=== PATIENT | female | born 1970 | race Caucasian/White ===

== ENCOUNTER → 2016-07-06 | Outpatient (CLI) | payer OTHER ==
[~2016-07-06] MED LIST: ATENOLOL; ATENOLOL PO; BACLOFEN10 MG PO; FLEXERIL PO; FLEXERIL10 MG PO; IBUPROFEN800 MG PO; NORA-BE PO; OMEPRAZOLE20 M2 PO; SYNTHROID PO; TRAMADOL HCL50 M2 PO; VOLTAREN75 MG PO
--- NOTE | ~2016-07-06 | MR113 ---
[facility] A Service of [facility] & [facility] RADIOLOGY TEXT RESULTS PATIENT: ZANDRA SMITH LOCATION: [facility] : 68 UNIT #: [id number] AGE: [address]: Vamsi Rojo MD SEX: F ORDER DR: [id number] [address] [address] [id number] O MR#: [id number] Acc #: [id number] NAME: ZANDRA SMITH : 1970 SEX: F STUDY DATE/TIME: 07/06/2016 11:28 UNIT: [facility] ROOM: STUDY DESCRIPTION: MR Lumbar Wo Contrast Attending Physician: Vamsi Rojo M.D. Referring Physician: Vamsi Rojo M.D. Ordering Physician: Vamsi Rojo M.D. Primary Care Physician: Kyle Lambert M.D. MRI CENTER REPORT This report is preliminary unless electronic signature is present. EXAM MRI of the lumbar spine without contrast dated 07/06/2016. COMPARISON Plain films lumbar spine dated 03/31/2016. HISTORY Increased low back pain, which is greater on the left than the right. Bilateral lower extremity numbness and weakness for approximately 4 months. FINDINGS Multisequence multiplanar imaging of the lumbar spine was obtained without contrast. Vertebral body heights and alignment are preserved. Degenerative disc disease is seen from L3-4 to L5-S1. Conus terminates at L1. Signal of conus and cauda equina are within normal limits. Pre and paravertebral soft tissues do not demonstrate any significant abnormality. Increased T2-signal lesions are noted in bilateral kidneys with a relatively larger 1 in the inferior right kidney measuring 1.7 x 1.6 cm. These are incompletely characterized on the current study. At T10-11, concentric disc bulge with suspicious small central protrusion is noted based on the sagittal images with borderline size to mild canal stenosis without significant cord compression. Axials were not obtained at this level as this is a lumbar spine study. L1-2: Mild bilateral facet changes. No canal stenosis or neural foraminal narrowing. L2-3: Mild left facet hypertrophic change. No significant canal stenosis or neural foraminal narrowing. There is probably small left foraminal to extraforaminal broad-based protrusion, which barely encroaches on the left neural foramen. [facility] A Service of [facility] RADIOLOGY TEXT RESULTS PATIENT: ZANDRA SMITH LOCATION: [facility] : [birth year] UNIT #: [id number] AGE: [address]: Vamsi Rojo MD SEX: F ORDER DR: L3-4: Concentric disc bulge, which is asymmetrically prominent in the left foraminal to extraforaminal region, suggestive of broad-based protrusion. Mild inferior left neural foraminal narrowing is seen with minimal bilateral facet changes and borderline size to mild canal stenosis. L4-5: Concentric disc bulge with superimposed left foraminal to extraforaminal broad-based protrusion. Kjyk-ne-wuaknijc right and unqysdwf-wc-lyokgo left facet hypertrophic changes are noted with small 4.5 mm increased T2-signal lesion in the lateral aspect of the left facet joint, likely a small synovial cyst or inflammatory tissue. There is gupz-le-jbdkyofp canal stenosis and mild inferior bilateral neural foraminal narrowing , worse on the left. L5-S1: Concentric disc bulge with severe right and mild left facet hypertrophic change. Mild inferior right neural foraminal narrowing is seen. 5 mm increased T2-signal lesion is noted posterior to the left facet joint, likely small synovial cyst/inflammatory tissue. Dryr-tv-zpltfmtz inferior right neural foraminal narrowing is noted with widely patent superior portion of the neural foramen. IMPRESSION 1. Degenerative changes are noted at multiple levels involving the discs and the facet joints as described above. 2. Findings are slightly worse at L3-4 and L4-5. 3. At T10-11, concentric disc bulge with suspicious small central protrusion is noted based on the sagittal images with borderline size to mild canal stenosis without significant cord compression. Axials were not obtained at this level as this is a lumbar spine study. Dictated by... Mylene Ramirez M.D. THIS IS AN ELECTRONICALLY VERIFIED REPORT Mylene Ramirez M.D. at 07/09/2016 4:11 PM CPR/pc TD: 07/07/2016 12:24 JOB #: [id number] MRI CENTER REPORT Page 1 of 1
== END | disposition home or self-care (01) ==
LOC: SMRI 10:47
DX: M54.5 Low back pain (principal); M47.816 Spondylosis without myelopathy or radiculopathy, lumbar region; M51.86 Other intervertebral disc disorders, lumbar region
CPT/HCPCS: 72148

== ENCOUNTER 2016-09-10 11:24 | Emergency (ER) | payer OTHER ==
--- NOTE | ~2016-09-10 | CR281 ---
[facility] A Service of [facility] & [facility] RADIOLOGY TEXT RESULTS PATIENT: ZANDRA SMITH LOCATION: [facility] : [birth year] UNIT #: [id number] AGE: [address]: Coreen Solano APRN SEX: F ORDER DR: [id number] [facility] [address] [place], [place] [address] [id number] MR#: [id number] Acc #: [id number] NAME: ZANDRA SMITH. : 1970 SEX: F STUDY DATE/TIME: 09/10/2016 13:06 UNIT: [facility] ROOM: STUDY DESCRIPTION: CR Wrist Min 3 View Lt Attending Physician: Coreen Solano A.P.R.N. Ordering Physician: Librado Schmid M.D. Primary Care Physician: Kyle Lambert M.D. MEDICAL IMAGING REPORT This report is preliminary unless electronic signature is present EXAM Left wrist, 3 views, 09/10/2016, 1306 hours. CLINICAL HISTORY 45-year-old with chronic wrist pain for several years worsening today. No reported injury. COMPARISON None. FINDINGS AP and lateral views and oblique views of the wrist were performed. The overall bone density is normal. The distal radius, ulna are normal. Carpal bones are intact. There is no spurring, joint space loss or erosive change. IMPRESSION Negative left wrist. Dictated by... Tiffanie Aj M.D. THIS IS AN ELECTRONICALLY VERIFIED REPORT Tiffanie Aj M.D. at 09/10/2016 5:18 PM [place] TD: 09/10/2016 16:32 JOB #: [id number] MEDICAL IMAGING REPORT Page 1 of 1 COPY
== END 2016-09-10 14:03 | disposition home or self-care (01) ==
LOC: CED 11:24 → CFTX 11:24
DX: M25.532 Pain in left wrist (principal); G89.29 Other chronic pain; I10 Essential (primary) hypertension; E05.90 Thyrotoxicosis, unspecified without thyrotoxic crisis or storm; F17.200 Nicotine dependence, unspecified, uncomplicated; Z88.7 Allergy status to serum and vaccine; Z88.8 Allergy status to other drugs, medicaments and biological substances
CPT/HCPCS: 29125; 73110; 99283